=== PATIENT | female | born 1950 | race Caucasian/White ===

== ENCOUNTER 2017-09-22 09:33 | Outpatient (CLI) | payer MEDICARE ==
--- NOTE | 2017-09-22 10:35 | XRay Report ---
XRAY LEFT HIP THREE VIEWS: 09/22/17 09:33:00 CLINICAL: Left hip pain. FINDINGS: No fracture or dislocation. Mild superolateral hip joint space narrowing with mild superior acetabular eburnation. Similar changes in the right hip. The SI joints are normal. The pelvic bones are intact. IMPRESSION: Mild osteoarthritis.
== END 2017-09-22 09:34 | disposition home or self-care (01) ==
LOC: SPVIMAG 09:33
PROVIDERS: ATTEND Orthopaedic Surgery Sports Medicine
DX: M16.12 Unilateral primary osteoarthritis, left hip (principal)